=== PATIENT | female | born 1995 | race African-American/Black ===

== ENCOUNTER → 2018-09-12 | Day surgery (SDC) | payer OTHER ==
[~2018-09-12] MED LIST: BACITRACIN 50000 UNIT VIAL ONE; CEFAZOLIN SODIUM 1 GM/VIAL ONE; CEFAZOLIN/SWI 1gm 1 GM/10 ML SYR ONE; FENTANYL CITR 100 MCG/2 ML ONE; FENTANYL CITR 250 MCG/5 ML ONE; GENTAMICIN SULF 80 MG/2ML INJ ONE; GLYCOPYRROLATE 0.2 MG/ML SYR ONE; HYDROCODONE/APAP 5/325 MG TAB ONE; KETOROLAC 30 MG/ML INJ ONE; LANO/MINERAL OIL/PETRO 3.5 GM ONE; LIDOCAINE 2% MPF 5 ML VIAL ONE; MEPERIDINE HCL 50 MG/ML AMP ONE; MIDAZOLAM HCL 2 MG/2 ML INJ ONE; MORPHINE 10 MG/ML VIAL ONE; Mastisol Adhesive Liq ONE; NS 0.9% VIAL 20 ML ONE; PROPOFOL 200 MG/20 ML VIAL IV ONE; ROCURONIUM 50 MG/5 ML VIAL IV ONE; Ringers Lactate 1,000 ML IV ONE; SCOPOLAMINE HYDROBROMIDE PATCH TD ONE
--- OUTSIDE RECORDS SUMMARY | 2018-09-12 08:35 | XMS REPORT ---
:1995 [facility] Address [address] [place] [address] Care Team Providers Name Role Phone WESLEY WYNNE Unavailable Unavailable Problems This patient has no known problems. Allergies, Adverse Reactions, Alerts This patient has no known allergies or adverse reactions. Medications This patient has no known medications. Results Test Description Test Time Test Comments Text Results Atomic Results Result Comments Alcohol/Ethanol, Serum 2017-01-21 01:43:00 Test Item Value Reference Range Comments Alcohol, Ethyl (test code=ETOH) 0.11 g/dL 0.00-0.01 Intoxicated 0.080 g/ dL or more
--- NOTE | 2018-09-13 01:21 | OP ---
Surgeon: Alexey Gillis MD Tester Compressed Gases: Jose. Preoperative Diagnosis: Breast enlargement. Postoperative Diagnosis: Breast enlargement. Procedure Performed: Breast reduction, 500 on the right and 534 on the left. Anesthesia: General. Description Of Procedure: After satisfactory induction of general anesthesia, chest was prepped with DuraPrep. Dry sterile drapes were applied in the usual manner. A 5 cm template was then used to ou tline the right and left areola. Transverse and inferior incisions were made. The intervening skin was de-epithelialized with dermabrader and EpiCut. Electrocautery was used to elevate the flap, was elevated towards the sternum, clavicle, anterior axillary line. Then inferior incision was made. Re tropectoral dissection was performed and then the de-epithelialized flap was formed into a cone, prep ped the cone formation. Excess breast tissue removed from the lateral inferior and the cone was form ed with a 2-0 PDS sutures interrupted. Left side was done in an identical manner. The patient then had the straps elevated from the base of the cone at the 12 o'clock, 1:30, 3 o'clock position. The s traps were then woven in and out the pectoralis major, back to the base of the cone, back to themselv es, and eventually tied with 2-0 PDS. This done for the 12 o'clock and 1:30 strap. A 3 o'clock stra p was sewn over the sternum at 3 o'clock position with 2 Ethibond. Left side done on mirror image ma nn. The patient was sat up. The wound was then checked for symmetry. Minor adjustments made and then the wound was irrigated with saline solution. A 10 REI was out and axilla sewn in place with 2-0 silk and the wound closed in layers 3-0 Vicryl subcu, 3-0 PDS running subcuticular tied from lateral , medial, medial lateral, and tied in the vertical meridian of the breast. Left side done in an iden tical manner. The patient was sat up. Site for new nipple-areola complex was marked out. The tissu e was cored out with a 5 cm template and then nipple was delivered, sewn with interrupted 5-0 PDS and 4-0 PDS running subcuticular. Dressings of tincture of benzoin, Steri-Strips, 5x5s, fluffs, and Reece wrap. The patient tolerated the procedure well. Amount removed from right breast 500, left 534. JIMY/SHANA Voice ID: [id number] Report ID: [id number]
== END | disposition home or self-care (01) ==
LOC: OR 08:31
PROVIDERS: ATTEND Specialist
PROC: 0H0V0ZZ Alteration of Bilateral Breast, Open Approach (ICD-10-PCS; 2018-09-12)
PROC: 0H0V0ZZ Alteration of Bilateral Breast, Open Approach (ICD-10-PCS; principal; 2018-09-12 10:00)
DX: N62 Hypertrophy of breast (principal); N64.81 Ptosis of breast
CPT/HCPCS: 81025; 88305; J0690; J1580; J2175; J2250; J2704; J3010